=== PATIENT | male | born 1975 | race Caucasian/White ===

== ENCOUNTER 2019-04-18 12:54 | Emergency (ER) | payer MEDICAID ==
[~2019-04-18] VITALS: Ht 175.3 cm; Wt 129.3 kg
[~2019-04-18 12:54] MED LIST: HYDROCHLOROTHIAZIDE PO; LISINOPRIL40 MG PO; NORVASC10 MG PO
[2019-04-18] MEDS ORDERED: KEFLEX500 M1 PO (14:52)
[2019-04-18 15:21] VITALS: BP 146/82
== END 2019-04-18 15:22 | disposition home or self-care (01) ==
LOC: M.ERS 12:54
DX: M25.532 Pain in left wrist (principal); M79.602 Pain in left arm; L53.9 Erythematous condition, unspecified; I10 Essential (primary) hypertension; E78.00 Pure hypercholesterolemia, unspecified; Z88.0 Allergy status to penicillin

== ENCOUNTER 2020-03-25 10:37 | Emergency (ER) | payer OTHER, MEDICAID ==
[~2020-03-25] VITALS: Ht 177.8 cm; Wt 104.3 kg
[~2020-03-25 10:37] MED LIST changes: +KEFLEX500 M1 PO
[2020-03-25] MEDS ORDERED: HYDROCHLOROTHIA25 M2 PO (10:46)
[2020-03-25 11:17] LABS: ABSOLUTE BASOPHILS 0.1 thou/uL (0.0-0.2); ABSOLUTE NEUTROPHILS 9.3 thou/uL (1.6-8.1); BASOPHILS 0.6 %; EOSINOPHILS 0.3 %; HEMATOCRIT 41.7 % (42.0-52.0); HEMOGLOBIN 13.8 gm/dL (14.0-18.0); LYMPHOCYTES 8.8 %; MCH 27.6 pg (26.0-34.0); MCHC 33.1 g/dL (28.0-37.0); MCV 83.4 fL (80.0-100.0); MONOCYTES 8.3 %; MPV 8.6 fl. (7.2-11.1); NUCLEATED RBCS 0 /100WBC; PLATELET COUNT* 290 thou/uL (150-400); RDW-CV 13.2 % (10.5-14.5); WBC 11.4 thou/uL (4.0-11.0)
[2020-03-25 11:25] LABS: CALCIUM 8.8 mg/dL (8.5-10.1); CREATININE 1.2 mg/dL (0.6-1.3); POTASSIUM 3.5 mmol/L (3.5-5.1)
[2020-03-25 11:30] LABS: ALBUMIN 3.4 g/dL (3.4-5.0); TOTAL BILIRUBIN 0.3 mg/dL (<0.1-1.0); URIC ACID* 8.9 mg/dL (2.6-7.2)
[2020-03-25] MEDS ORDERED: PREDNISONE 20 M20 M1 PO (12:08)
[2020-03-25 12:20] VITALS: BP 112/75
== END 2020-03-25 12:20 | disposition home or self-care (01) ==
LOC: M.ERS 10:37
PROVIDERS: Family Medicine
DX: M10.032 Idiopathic gout, left wrist (principal); M10.071 Idiopathic gout, right ankle and foot; R10.9 Unspecified abdominal pain; I10 Essential (primary) hypertension; E78.00 Pure hypercholesterolemia, unspecified; Z88.0 Allergy status to penicillin

== ENCOUNTER 2020-04-26 09:56 | Emergency (ER) | payer OTHER, MEDICAID, MEDICARE ==
[~2020-04-26] VITALS: Ht 175.3 cm; Wt 126.1 kg
[~2020-04-26 09:56] MED LIST changes: +HYDROCHLOROTHIA25 M2 PO; +PREDNISONE 20 M20 M1 PO
[2020-04-26 10:37] LABS: ABSOLUTE BASOPHILS 0.1 thou/uL (0.0-0.2); ABSOLUTE EOSINOPHILS 0.1 thou/uL (0.0-0.7); ABSOLUTE LYMPHOCYTES 1.3 thou/uL (0.8-5.3); ABSOLUTE NEUTROPHILS 7.5 thou/uL (1.6-8.1); BASOPHILS 0.6 %; EOSINOPHILS 0.6 %; HEMATOCRIT 42.4 % (42.0-52.0); HEMOGLOBIN 14.1 gm/dL (14.0-18.0); LYMPHOCYTES 13.3 %; MCH 27.6 pg (26.0-34.0); MCHC 33.3 g/dL (28.0-37.0); MONOCYTES 10.2 %; MPV 8.4 fl. (7.2-11.1); NUCLEATED RBCS 0 /100WBC; PLATELET COUNT* 302 thou/uL (150-400); POLYS 75.3 %; RBC 5.11 mil/uL (4.50-6.00); RDW-CV 14.2 % (10.5-14.5)
[2020-04-26 10:45] LABS: CALCIUM 8.9 mg/dL (8.5-10.1); CREATININE 1.1 mg/dL (0.6-1.3); POTASSIUM 3.9 mmol/L (3.5-5.1)
[2020-04-26] MEDS ORDERED: PREDNISONE 10 M10 M1 PO (11:09)
[2020-04-26] MEDS ORDERED: IBUPROFEN 800800 M1 PO (11:09)
[2020-04-26 11:25] VITALS: BP 148/91
== END 2020-04-26 11:25 | disposition home or self-care (01) ==
LOC: M.ERS 09:56
PROVIDERS: Emergency Medicine Emergency Medical Services
DX: M10.061 Idiopathic gout, right knee (principal); I10 Essential (primary) hypertension; Z88.0 Allergy status to penicillin; E78.00 Pure hypercholesterolemia, unspecified

== ENCOUNTER 2020-12-14 17:04 | Emergency (ER) | payer OTHER, MEDICAID ==
[~2020-12-14] VITALS: Ht 175.3 cm; Wt 122.5 kg
[~2020-12-14 17:04] MED LIST changes: +IBUPROFEN 800800 M1 PO; +PREDNISONE 10 M10 M1 PO
[2020-12-14] MEDS ORDERED: PREDNISONE 20 M20 M1 PO (17:48)
[2020-12-14] MEDS ORDERED: HYDROCODON-ACE1 EAC7 PO (17:48)
[2020-12-14 17:55] VITALS: BP 117/77
== END 2020-12-14 17:56 | disposition home or self-care (01) ==
LOC: M.ERS 17:04
DX: M10.071 Idiopathic gout, right ankle and foot (principal); I10 Essential (primary) hypertension; E78.00 Pure hypercholesterolemia, unspecified; Z88.0 Allergy status to penicillin